=== PATIENT | male | born 1965 | race Caucasian/White ===

== ENCOUNTER → 2020-04-30 13:38 | Outpatient (BNVA) | payer MEDICAID, SELFPAY | PROVIDERS: Referring Provider Family Medicine; Visit Provider Specialist | DX: M25.562 Pain in left knee (principal) | CPT/HCPCS: 73560; 73565 ==

== ENCOUNTER 2020-05-08 05:57 | Day surgery (SDC) | payer MEDICAID, SELFPAY ==
[2020-05-07 14:04] VITALS: BMI 22.8
[2020-05-08 06:16] LABS: Add Urine Microscopic? NO
[2020-05-08 06:20] VITALS: BP 154/81; PULSE 84; RESP 18; TEMP 36.2; O2SAT 98
--- NOTE | 2020-05-08 06:22 | ANES.PREANE2 ---
Pre-Anesthetic Assessment Pre-Anesthetic Assessment: Height/Weight: Height 1.75 m Weight 70.307 kg Temp Pulse Resp BP Pulse Ox 97.2 F L 84 18 154/81 98 05/08/20 06:20 05/08/20 06:20 05/08/20 06:20 05/08/20 06:20 05/08/20 06:20 Preop Diagnosis: Left knee lateral meniscal tear Proposed Procedure: Operation Date: 05/08/20 07:00 Proposed Procedures p Knee Arthroscopy with partial lateral meniscectomy and debridement [id number] S83.282A(Left) - Brandee Willingham MD Familial anesthetic complications: NOne Was Beta Ismael taken within 24 hours: Yes Last intake: NPO > 8 hrs, took all his anti-rejection drugs to include prednisone, will give hydrocortisone for stress dose steroids Social: Social History: No alcohol and No tobacco Exam: Pre-Anes Outpt Exam: alert, oriented x 3, clear to auscultation bilaterally and regular rate & rhythm Airway: Cervical ROM: WNL MP: 2 Dentition: Full CV/HEM: Comments: Hx cardiac transplant 3 years ago, got heart cath last week and he was told everything was fine. He has had no SOB or edema or liver dysfunction. He is able to climb stairs and do all activities. States he feels great. Anesthetic Plan: ASA status: 2 Anesthesia: General Other: Will have isoproteronol in room for chronotropic effect Risk of > 500 ml blood loss (7ml/kg in children): No PFSH Anesthesia PFSH: Medical History (Updated 05/04/20 @ 09:19 by Brandee Willingham MD) History of acute gouty arthritis History of congenital heart defect Hypertension Surgical History (Updated 05/04/20 @ 09:15 by Brandee Willingham MD) History of heart transplant Social History Smoking and tobacco status: never smoked Alcohol intake: never Data Anesthesia Cardiac Studies: No Data to Display
[2020-05-08] MEDS: CELEcoxib 200 mg Capsule 400 MG PO (06:23)
[2020-05-08 06:26] LABS: Bilirubin Urine Neg (Negative); Blood Urine Neg (Negative); Glucose Urine UA Norm (Normal); Ketones Urine Negative (Negative); Leukocyte Esterase Urine Negative (Negative); Nitrate Urine Negative (Negative); Protein Urine Neg (Negative); Urine Appearance Clear (CLEAR); Urine Color Yellow (Yellow); Urobilinogen Urine Norm (Negative); pH Urine 5 (5-7)
--- NOTE | 2020-05-08 06:26 | ECG_ITS ---
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 Measurements Intervals [place] Rate: 72 P: 109 PA: 130 QRS: 222 QRSD: 124 T: 41 QT: 384 QTc: 423 Interpretive Statements SINUS RHYTHM WITH OCCASIONAL VENTRICULAR PREMATURE COMPLEXES MARKED RIGHT AXIS DEVIATION [QRS AXIS > 100] RIGHT BUNDLE BRANCH BLOCK [120+ ms QRS DURATION, UPRIGHT V1, 40+ ms S IN I/aVL/V4/V5/V6] POSSIBLE ANTERIOR MYOCARDIAL INFARCTION [30 ms Q WAVE IN V3/V4, OR R < 0.2 mV IN V4], OF INDETERMINATE AGE No previous ECG available for comparison Electronically Signed On 05-09-2020 9:05:45 CDT by Nancy Garcia M.D. [email or web address]
[2020-05-08] MEDS: sodium chloride 0.9% 1,000 ML 30 ML IV (06:30)
[2020-05-08 06:41] LABS: Basophils % 0.4 %; Eosinophils # 0.1 10^3/uL (0.0-0.8); Eosinophils % 1.7 %; Hemoglobin 11.7 g/dL (11.7-16.6); Lymphocytes # 1.5 10^3/uL (0.8-4.8); Lymphocytes % 20.5 %; Mean Corpuscular HGB Conc 29.3 g/dL (30.0-36.0); Mean Corpuscular Hemoglobin 21.1 pg (28.0-34.0); Mean Corpuscular Volume 72.2 fL (80-94); Monocytes # 1.1 10^3/uL (0.2-0.9); Neutrophils # 4.32 10^3/uL (1.8-7.7); Nucleated Red Blood Cells % 0 %; Platelet Count 240 10^3/cmm (130-400); Red Blood Count 5.54 10^6/uL (4.1-5.3); Red Cell Distribution Width 19.3 % (12.1-15.1); White Blood Count 7.1 10^3/uL (4.0-10.0)
--- NOTE | 2020-05-08 06:56 | W.PM.OPSUD ---
Surgery/Procedure H&P Update DATE OF PROCEDURE: May 08, 2020 DATE H&P PERFORMED: 04/30/20 H&P UPDATE INFORMATION: I have reviewed H&P completed within last 30 days, I have examined patient prior to procedure, No changes to prior documentation and H&P is in [facility] EMR on date indicated PREOP DIAGNOSIS: Left knee lateral meniscal tear PLANNED PROCEDURE: Operation Date: 05/08/20 07:00 Proposed Procedures p Knee Arthroscopy with partial lateral meniscectomy and debridement [id number] S83.282A(Left) - Brandee Willingham MD Related Problem List Diagnoses (1) Tear of lateral meniscus of left knee:
[2020-05-08 07:01] LABS: Alanine Aminotransferase 20 U/L (0-41); Albumin Level 4.2 g/dL (3.5-5.2); Alkaline Phosphatase 93 IU/L (40-130); Aspartate Amino Transferase 23 U/L (0-40); Blood Urea Nitrogen 18 mg/dL (6-20); Calcium 9.1 mg/dL (8.5-10.5); Carbon Dioxide 24 mmol/L (22-29); Chloride 104 mmol/L (98-107); Globulin 2.6 g/dL (1.3-4.6); Glomerular Filtration Rate 78.2 mL/min (90-130); Glucose 106 mg/dL (65-115); Osmolality Calculated 288 mOsm/kg (285-295); Sodium 138 mmol/L (136-145); Total Bilirubin 0.3 mg/dL (0.15-1.2); Total Protein 6.8 g/dL (6.6-8.7)
[2020-05-08 07:06] LABS: Anion Gap 14.2 (5-19); Potassium 4.2 mmol/L (3.5-5.1)
[2020-05-08] MEDS: morphine 4 mg/mL SDV 1 mL 8 MG IM (07:47)
[2020-05-08 08:15] VITALS: BP 111/69; PULSE 72; RESP 19; TEMP 36.2; O2SAT 96
--- NOTE | 2020-05-08 08:15 | PM.OP ---
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 Condition: stable Disposition: PACU (Then home with family) Brief History: This 55-year-old gentleman was in his usual state of health when he was pushing a wheelchair, he got stuck in the mud and twisted his knee. Subsequent MRI demonstrated an anterior lateral meniscal tear. The patient was scheduled for the above procedure after discussions including risks and complications. He is a heart transplant patient, and clearance was obtained from his transplant surgeon. The patient felt he had significant limitations in his activities of daily living. Procedure: Patient was brought to the operating theater and after undergoing adequate general anesthesia per LMA, the patient's left lower extremity was prepped and draped in usual fashion utilizing DuraPrep. A tourniquet was placed high on the leg prior to prepping and draping. The tourniquet was elevated prior to commencement of the surgical procedure to 250 mmHg. Total tourniquet time was 37 minutes. Elevation followed prepping and exsanguination. Prior to commencement of the surgical procedure, a surgical pause was performed. At the time of the surgical pause, we identified the site and side of surgery. We also confirmed the patient's identity and appropriate and timely administration of preoperative antibiotics. Preoperative surgical markings were also visualized at this time. Standard arthroscopic portals were utilized including superolateral, inferomedial, and inferolateral portals. The examination commenced in the suprapatellar pouch area where the patient was noted to have significant synovitis in the suprapatellar pouch area. There was no significant chondromalacia of the patella, but there were punctate lesions with almost an erosive appearance over the patella and also within the trochlear groove. Subsequently, these were found elsewhere in the knee as well. The arthroscope was then passed in the medial compartment where there was noted to be inner rim tearing of the medial meniscus. There was also irregularity to the very outer portion of the meniscus in its midportion consistent possibly with the patient's description of subsequent injury after his MRI causing him medial sided knee pain. The arthroscope was then passed across the notch area where anterior cruciate ligament was visualized and found to be intact. There was significant synovitis in this area as well. The scope was passed into the lateral compartment with the knee in a [id number] position. Lateral meniscus was noted to have inner rim tearing and reactive synovitis. This was addressed with the arthroscopic shaver and subsequently the intra-articular heat wand as well as basket forceps. Once lateral meniscus had been thus prepared it was palpated and found to be intact and not displaceable into the knee joint. Scope was then returned to the medial compartment where the inner rim of the meniscus was addressed with a shaver as well as with the intra-articular heat wand. The meniscus was palpated and found to be not displaceable into the knee joint. The arthroscope was then returned to the patellofemoral joint where a synovectomy was performed. This synovectomy involved use of the intra-articular shaver as well as the heat wand. Once the patella had been addressed, the scope was passed back through the knee compartments to evaluate for other abnormalities. Finding none, attention was directed to closure. The knee was copiously irrigated and suctioned dry. Following this, each portal was closed with a simple suture followed by Exofin and OpSite. Additionally, the knee was injected with 20 mL of half percent ropivacaine and 8 mg of morphine. Additional 10 mL of ropivacaine was placed about the portals. Sterile dressing was placed consisting of the OpSite followed by soft roll and an Julio wrap. Patient was returned to Recovery Room in satisfactory condition where he will be discharged home to follow-up with me in the office as scheduled. There were no complications and no specimens. Associated Problem List Diagnoses (1) Tear of lateral meniscus of left knee: Qualifiers: Tear current or old: current Encounter type: initial encounter Meniscus tear of knee type: other type Qualified Code(s): S83.282A - Other tear of lateral meniscus, current injury, left knee, initial encounter (2) Tear of medial meniscus of left knee: Qualifiers: Tear current or old: current Encounter type: initial encounter Meniscus tear of knee type: other type Qualified Code(s): S83.242A - Other tear of medial meniscus, current injury, left knee, initial encounter (3) Primary osteoarthritis of left knee:
[2020-05-08 08:20] VITALS: BP 123/55; PULSE 70; RESP 16; O2SAT 94
[2020-05-08 08:25] VITALS: BP 126/72; PULSE 69; RESP 14; TEMP 36.2; O2SAT 95
[2020-05-08 08:35] VITALS: BP 122/75; PULSE 68; RESP 18; TEMP 36.2; O2SAT 95
--- NOTE | 2020-05-08 08:50 | ANE.PACU2 ---
Inpatient post-anesthesia follow up: Airway intact: Yes Vital signs: Temperature 97.1 F Pulse Rate 73 Respiratory Rate 18 Blood Pressure 131/75 Pulse Oximetry 98 Oxygen Delivery Me thod Room Air Oxygen Flow Rate Fraction of Inspir ed Oxygen Hydration adequate: Yes Nausea and vomiting: No Pain level: 3 Mental status: Baseline
[2020-05-08] MEDS: HYDROcodone-acetaminophen 5-325 mg Tablet 1 TAB PO (09:04)
[2020-05-08 09:05] VITALS: BP 131/75; PULSE 73; RESP 18; O2SAT 98
--- NOTE | 2020-05-08 09:35 | SUR.PREOP ---
Midazolam 2 mg IV accidentally removed from this patient's account for different patient. 1 mg was given to other patient, and 1 mg was wasted with witness in pyxis under this account per José Miguel pharmacist instructions from inpatient pharmacy.
== END 2020-05-08 09:22 | disposition home or self-care (01) ==
PROVIDERS: Visit Provider Specialist
PROC: (CPT 29870; principal; 2020-05-08 07:00)
DX: S83.282A Other tear of lateral meniscus, current injury, left knee, initial encounter (principal); S83.242A Other tear of medial meniscus, current injury, left knee, initial encounter; M22.42 Chondromalacia patellae, left knee; M65.862 Other synovitis and tenosynovitis, left lower leg; I10 Essential (primary) hypertension; Z79.82 Long term (current) use of aspirin; Z94.1 Heart transplant status; X58.XXXA Exposure to other specified factors, initial encounter
CPT/HCPCS: 29880; 12345; 36415; 80053; 81003; 85025; 93005; 96365; J0131; J0690; J1720; J2270; J2795; J3010; J7030

== ENCOUNTER → 2021-02-03 13:18 | Outpatient (BNVA) | payer MEDICAID, SELFPAY | PROVIDERS: Visit Provider Specialist | DX: M17.12 Unilateral primary osteoarthritis, left knee (principal) | CPT/HCPCS: 73560; 73565 ==

== ENCOUNTER 2021-03-15 12:29 | Outpatient (CLI) | payer MEDICAID, SELFPAY ==
--- NOTE | 2021-03-15 12:38 | MR_ITS ---
WS: [id number] MRI LEFT KNEE ARTHROGRAM INDICATION: Left knee surgery. Multiple falls. Left knee pain. COMPARISON: Outside MRI of the left knee September 10, 2020 TECHNIQUE: MRI left knee arthrogram. Coronal STIR, coronal PD, coronal T1 post gadolinium, axial PD f at sat, sagittal PD fat-sat, and post arthrogram imaging was obtained. FINDINGS: Distal quadriceps and patella tendons are intact. Moderate suprapatellar effusion. Normal A CL and PCL. Hypertrophic patella. Chronic thinning of the medial and lateral meniscus. Presumed posto perative changes involving the anterior horn lateral meniscus with blunting. No acute appearing media l meniscal tears. Moderate to advanced narrowing medial and lateral joint compartments. Subchondral edema in the latera l femoral condyle. Osteochondral injury involving the posterior lateral femoral condyle. Lobulated po pliteal cyst measuring 2.6 x 2.1 x 4.7 CM. Moderate to advanced chondromalacia patella. No subchondra l edema. Medial and lateral collateral ligaments appear intact. MR/MR knee LT wo/w con [id number] IMPRESSION: 1. Moderate suprapatellar effusion. 2. Normal ACL and PCL. 3. Diffuse blunting of the lateral meniscus worse involving the anterior horn presumably postoperative similar to previous. Chronic thinning of the medial me niscus. No acute appearing medial meniscus appears. 4. Moderate to advanced chondromalacia medial and lateral joint compartments w ith subchondral edema involving the posterior lateral femoral condyle with oste ochondral injury. This is progressed compared to previous. 5. Moderate to advanced chondromalacia patella. No subchondral edema. 6. Lobulated popliteal cyst measuring 2.6 x 2.1 x 4.7 CM.
--- NOTE | 2021-03-15 12:38 | IR_ITS ---
WS: [id number] Exam: [place] [id number] Date/Time of Exam: 03/15/2021 12:46 PM Reason For Exam: [id number] - Pain in unspecified knee Fluoroscopy time: 0.5 minutes The procedure and potential complications were explained to the patient in detail. Written consent wa s obtained. The medial aspect of the left knee was prepped and draped in sterile fashion. The soft ti ssues were anesthetized with several cc of 1% Xylocaine. Using a medial approach a 22-gauge needle wa s inserted into the anterior joint compartment of the left knee. Position within the joint was confir med by injection of several cc of the nonionic contrast. Approximately 15 cc of a solution of 0.4 mg of gadolinium in 100 cc of sterile saline were injected into the joint. The patient tolerated the pro cedure without incident.
[2021-03-15] MEDS: iohexol 240 mg/mL 50 mL Btl INTRA-ARTI (13:54)
== END 2021-03-15 12:30 | disposition home or self-care (01) ==
PROVIDERS: Visit Provider Specialist
DX: M25.562 Pain in left knee (principal); M25.462 Effusion, left knee; M22.42 Chondromalacia patellae, left knee; M71.22 Synovial cyst of popliteal space [Baker], left knee
CPT/HCPCS: 27369; 73723; 77002; Q9966